=== PATIENT | male | born 1950 | race Caucasian/White ===

== ENCOUNTER 2019-05-16 11:45 | Emergency (ER) | payer OTHER ==
[~2019-05-16] VITALS: Ht 175.3 cm; Wt 83.0 kg
[~2019-05-16 11:45] MED LIST: A + D42.5 GM; AMOXICILLIN 50500 M1 PO; ANASPAZ0.125 MG SL; B-COMPLEX-VITA1 EACH PO; BACTROBAN CREAM30 G1 TOP; BAYER CHEWABLE81 MG PO; CIPRO250 M1 PO; CIPRO500 MG/5 M PO; COLACE100 MG PO; FISH OIL 1,001000 M1; HYOSCYAMIN125 MCG/5; LIPITOR 20 MG T20 M1 PO; LISINOPRIL20 MG PO; LORCET; MULTIVITAMINS1 EAC7 PO; NEXIUM40 MG PO; NOHOMEMEDICATIONS; NORCO 5-325 TA1 EACH PO; PROSCAR 5MG TABL5 M1 PO; TAMSULOSIN HCL0.4 M1; TAMSULOSIN HCL0.4 M1 PER TUBE; TAMSULOSIN HCL0.4 MG PO; VICODIN 5-5001 EACH PO; VITAMIN A25000 UNIT; VITAMIN D 5050000 I1 PO
[2019-05-16 12:01] LABS: ABSOLUTE LYMPHOCYTES 1.7 thou/uL (0.8-5.3); ABSOLUTE MONOCYTES 0.7 thou/uL (0.0-1.2); ABSOLUTE NEUTROPHILS 4.2 thou/uL (1.6-8.1); BASOPHILS 0.6 %; EOSINOPHILS 0.1 %; HEMATOCRIT 44.6 % (42.0-52.0); HEMOGLOBIN 15.5 gm/dL (14.0-18.0); LYMPHOCYTES 24.8 %; MCH 31.7 pg (26.0-34.0); MCHC 34.7 g/dL (28.0-37.0); MCV 91.4 fL (80.0-100.0); MPV 7.8 fl. (7.2-11.1); NUCLEATED RBCS 0 /100WBC; PLATELET COUNT* 194 thou/uL (150-400); POLYS 63.5 %; RBC 4.88 mil/uL (4.50-6.00); RDW-CV 12.6 % (10.5-14.5); WBC 6.7 thou/uL (4.0-11.0)
[2019-05-16 12:10] LABS: POTASSIUM 3.8 mmol/L (3.5-5.1)
[2019-05-16 12:13] LABS: APTT 32.5 Seconds (25.0-31.3); INR 1.1; PROTIME 10.8 Seconds (9.20-11.50)
[2019-05-16 12:24] LABS: ALBUMIN 3.6 g/dL (3.4-5.0); CK-MB MASS 1.7 ng/mL (<0.5-3.6); MAGNESIUM 2.1 mg/dL (1.8-2.4); TOTAL PROTEIN 7.9 g/dL (6.4-8.2)
[2019-05-16] MEDS ORDERED: ZPAK PO (13:29)
[2019-05-16] MEDS ORDERED: PREDNISONE 20 M20 M1 PO (13:29)
[2019-05-16 13:47] VITALS: BP 149/70
--- NOTE | 2019-05-16 14:34 | EKG ---
[place] [address] ELECTROCARDIOGRAM REPORT Name: LAURAVALENCIA [facility] [id number] Admission: 05/16/19 Attend Phys: Discharge: 05/16/19 Date of : 46 Report #: [id number] THIS REPORT FOR: //name// [facility] ED Test Date: 2019-05-16 Test Time: 12:12:31 Pat Name: VALENCIA SANCHEZ Department: Room: Gender: M Inspection Manager: CELIA : 1950 Requested By: Rk Nichole Order Number: [id number] MD: David Le Measurements Intervals [place] Rate: 70 P: 74 NC: 136 QRS: -21 QRSD: 103 T: 38 QT: 385 QTc: 416 Interpretive Statements Sinus rhythm Borderline left axis deviation Abnormal R-wave progression, late transition Minimal ST elevation, anterior leads Baseline wander in lead(s) V2 Compared to ECG 10/01/2015 11:09:39 no change Electronically Signed On 05-16-2019 14:34:34 MEDICAL MANAGER by David Le [email or web address] <ELECTRONICALLY SIGNED> By: David Le MD, [facility] 05/16/19 1434 1212 1212 David Le MD, [facility] /EPI
== END 2019-05-16 13:49 | disposition home or self-care (01) ==
LOC: M.ERS 11:45
PROVIDERS: Family Medicine
DX: R07.89 Other chest pain (principal); E78.5 Hyperlipidemia, unspecified; I10 Essential (primary) hypertension; Z90.49 Acquired absence of other specified parts of digestive tract; Z87.442 Personal history of urinary calculi